=== PATIENT | male | born 1970 | race Caucasian/White ===

== ENCOUNTER 2024-10-06 15:47 | Emergency (ER) | payer BC ==
[~2024-10-06] VITALS: Ht 182.8 cm; Wt 90.7 kg
[2024-10-06] MEDS ORDERED: SODIUM CHLORIDE 0.9% 1,000 ML IV ONE (16:25)
[2024-10-06] MEDS ORDERED: Ondansetron Hydrochloride 4 MG/2 ML VIAL IV ONE (16:25)
[2024-10-06 16:46] LABS: BASO # 0.1 10*3/uL (0.0-0.1); BASO % 0.4 % (0.0-1.0); EOS # 0.1 10*3/uL (0.0-0.4); EOS % 0.6 % (1.0-4.0); MEAN CELL VOLUME 87.8 fl (80.0-94.0); MEAN CORPUSCULAR HGB 29.3 pg (27.0-31.0); MEAN CORPUSCULAR HGB CONC 33.4 g/dl (33.0-37.0); MEAN PLATELET VOLUME 9.3 fl (9.6-12.3); MONO # 0.5 10*3/uL (0.1-1.0); MONO % 3.7 % (3.0-9.0); NEUT # 11.1 10*3/uL (2.3-7.9); NEUT % 87.7 % (47.0-73.0); PLATELET COUNT AUTOMATED 176 10*3/uL (130-400); RED BLOOD COUNT 4.67 10*6/uL (4.50-5.90); RED CELL DISTRI WIDTH 12.9 % (0-14.5); WHITE BLOOD COUNT 12.6 10*3/uL (4.8-10.8)
[2024-10-06 17:11] LABS: ALKALINE PHOSPHATASE 101 U/L (46-116); BUN 16 mg/dl (9-23); CHLORIDE 101 mmol/L (98-107); POTASSIUM 4.7 mmol/L (3.4-5.1); SGPT/ALT 18 U/L (5-49); TOTAL PROTEIN 7.3 gm/dL (6.0-8.0)
[2024-10-06] MEDS ORDERED: diazePAM 10 MG/2 ML SYR IV ONE (18:00)
[2024-10-06] MEDS ORDERED: Meclizine Hydrochloride 25 MG TAB PO ONE (18:00)
[2024-10-06] MEDS ORDERED: Ondansetron4 MG PO (19:20)
== END 2024-10-06 19:27 | disposition home or self-care (01) ==
LOC: ED 15:47
PROVIDERS: Internal Medicine
DX: R42 Dizziness and giddiness (principal); R11.2 Nausea with vomiting, unspecified